=== PATIENT | male | born 1970 | race Caucasian/White ===

== ENCOUNTER 2023-11-01 08:00 | Emergency (ER) | payer OTHER, SELFPAY ==
--- NOTE | 2023-11-01 08:01 | XR_ITS ---
WS: [id number] XR chest 1V portable 88001 REASON FOR EXAM: chest pain FINDINGS: No previous comparison examination. The heart and the mediastinum are within normal limits. 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 No acute/subacute pulmonary parenchymal or pleural abnormality. No lung nodule or lung mass. No adenopathy. Bony thorax is intact with no significant focal abnormality. XR/XR chest 1V portable 80057 IMPRESSION: No acute abnormality.
--- NOTE | 2023-11-01 08:01 | ECG_ITS ---
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 Measurements Intervals [place] Rate: 82 P: 26 MN: 157 QRS: 41 QRSD: 100 T: 0 QT: 374 QTc: 438 Interpretive Statements SINUS RHYTHM No previous ECG available for comparison Electronically Signed On 11-02-2023 21:50:15 CDT by Sameer Sebastian M.D. [id number]
--- NOTE | 2023-11-01 08:03 | ED_ITS ---
HPI - Chest Pain 2 General: Chief Complaint: Chest Pain Stated Complaint: chest pain Time Seen by Provider: 11/01/23 08:01 Source: patient Mode of arrival: ambulatory Limitations: no limitations History of Present Illness: Patient is a 53-year-old male with a history of hypertension here for complaints of chest pressure. He states symptoms have been intermittent since last night. Upon arrival to the emergency department he states he is not having any discomfort. He denies any alleviating or worsening factors to his discomfort. It does not seem to be affected by exertion. He does not complain of feeling short of breath or any difficulty breathing. No recent illness or URI-like symptoms. No fevers. He has no known cardiac or pulmonary history. 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 complaint: chest pain and chest heaviness Onset (ago): day(s) (yesterday) Timing of current episode: episodic Prior episodes: No Onset: during rest Pain location: substernal Pain radiation: none Severity: mild Quality: other (pressure) Relieving factors: nothing Exacerbating factors: nothing Associated symptoms: Reports no associated symptoms; Deny abdominal pain, dyspnea, fever(s), nausea, palpitations, syncope or vomiting Treatment prior to arrival: none Risk Factors: Coronary artery disease risk factors: hypertension Thoracic aortic dissection risk factors: none Review of Systems 2 Const: Denies: fever(s), chills, body aches, fatigue or malaise ENMT: Denies: throat pain or odynophagia Card: Reports: chest pain; Denies: palpitations, irregular heart rhythm, edema, swelling of feet/ankles, lightheadedness, syncope, pre-syncope, dyspnea on exertion, orthopnea, leg pain with exertion or acrocyanosis Resp: Denies: dyspnea, productive cough, non-productive cough, wheezing, pain on inspiration, hemoptysis or chest congestion GI: Denies: abdominal pain, nausea, vomiting or diarrhea Musc: Denies: neck pain, back pain, extremity pain, extremity swelling or joint pain Skin/Breast: Denies: rash Neuro: Denies: headache(s), numbness in extremities, weakness in extremities, sensory changes or dizziness Physical Exam 2 Const: COMMON NORMALS: no acute distress, average body habitus, patient oriented x3, no limitations, healthy appearing, alert and well nourished G ENERAL APPEARANCE: cooperative ORIENTATION/CONSCIOUSNESS: Yes awake, Yes oriented to person, Yes oriented to place and Yes oriented to time HENMT: COMMON NORMALS: normocephalic and atraumatic HEAD & SCALP: normal to inspection, normocephalic and atraumatic Eye: COMMON NORMALS: no scleral icterus Neck/C-Spine: COMMON NORMALS: full ROM and no lymphadenopathy GENERAL: Yes normal visual inspection Chest: COMMONS NORMALS: normal inspection of the chest and normal palpation of entire chest wall Resp: COMMON NORMALS: normal respiratory effort and clear to auscultation bilaterally AUSCULTATION: clear to auscultation bilaterally Cardio: COMMON NORMALS: regular rate and regular rhythm RATE: regular rate RHYTHM: regular rhythm GI: COMMON NORMALS: Normal to inspection, nondistended, normoactive bowel sounds present, Soft to palpation and non-tender PALPATION: Yes Soft to palpation Back/Pelvis: COMMON NORMALS: thoracic and lumbar spine normal to inspection and no thoracic nor lumbar tenderness Extremity: GENERAL: Yes normal exam except as noted Neuro: [place] COMA SCALE: document GCS findings [place] coma scale eye opening: Spontaneous [place] coma scale verbal response: Orientated [place] coma scale motor response: Obey commands [place] coma scale total score: 15 COMMON NORMALS: patient oriented x3, moves all extremities, no focal motor deficits, no sensory deficits noted and gait normal SENSORIUM/ORIENTATION: Yes alert, Yes oriented to person, Yes oriented to place and Yes oriented to time Skin: COMMON NORMALS: no rashes or lesions noted GENERAL SKIN EXAM: no rashes or lesions noted Course 2 Vital Signs: Vital signs: Vital Signs Temperature 99.7 F H 11/01/23 08:08 Pulse Rate 74 11/01/23 09:28 Blood Pressure 162/97 11/01/23 09:28 Pulse Oximetry 97 11/01/23 09:28 Oxygen Delivery Me thod Room Air 11/01/23 09:17 MDM - Chest Pain Medical Decision Making Patient has been completely pain-free throughout his ED stay. His blood work including a baseline troponin is unremarkable. Symptoms starting yesterday so repeat troponins are unnecessary. Initial and repeat EKGs showing an inverted T wave in lead III but otherwise unremarkable. There are no previous EKGs for comparison. History is not overly suspicious. At this time I recommend he follow-up with primary care if chest pain episodes persist as he will need outpatient stress testing. He was given strict precautions on when to return to the emergency department. Medical Records I reviewed the patient's medical records. Lab Data I reviewed the patient's lab results. 11/01/23 08:07 11/01/23 08:07 Laboratory Results WBC 8.32 10^3/uL (3.29-11.43) 11/01/23 08:07 RBC 5.98 10^6/uL (3.85-5.65) H 11/01/23 08:07 Hgb 17.70 g/dL (11.27-16.99) H 11/01/23 08:07 Hct 50.6 % (37-53) 11/01/23 08:07 MCV 84.6 fl (82-101) 11/01/23 08:07 MCH 29.6 pg (27-33) 11/01/23 08:07 MCHC 35.0 g/dL (30-55) 11/01/23 08:07 RDW 13.4 % (12.1-15.1) 11/01/23 08:07 Plt Count 236 10^3/cmm (157-399) 11/01/23 08:07 MPV 11.3 fL (7.4-10.4) H 11/01/23 08:07 Neut % (Auto) 54.2 % 11/01/23 08:07 Lymph % (Auto) 38.8 % 11/01/23 08:07 Leon % (Auto) 4.1 % 11/01/23 08:07 Eos % (Auto) 1.8 % 11/01/23 08:07 Baso % (Auto) 0.5 % 11/01/23 08:07 Neut # (Auto) 4.51 10^3/uL (1.8-7.7) 11/01/23 08:07 Lymph # (Auto) 3.2 10^3/uL (0.8-4.8) 11/01/23 08:07 Leon # (Auto) 0.3 10^3/uL (0.2-0.9) 11/01/23 08:07 Eos # (Auto) 0.2 10^3/uL (0.0-0.8) 11/01/23 08:07 Baso # (Auto) 0.0 10^3/uL (0.0-0.1) 11/01/23 08:07 Nucleated RBC % (auto) 0 % 11/01/23 08:07 Nucleated RBCs # 0.0 /100WBC 11/01/23 08:07 Sodium 137 mmol/L (136-145) 11/01/23 08:07 Potassium 4.0 mmol/L (3.5-5.1) 11/01/23 08:07 Chloride 99 mmol/L (98-107) 11/01/23 08:07 Carbon Dioxide 23 mmol/L (22-29) 11/01/23 08:07 Anion Gap 19.0 (5-19) 11/01/23 08:07 BUN 14 mg/dL (6-20) 11/01/23 08:07 Creatinine 0.8 mg/dL (0.7-1.2) 11/01/23 08:07 GFR Calculation 101.1 mL/min (90-130) 11/01/23 08:07 Glucose 120 mg/dL (65-115) H 11/01/23 08:07 Calculated Osmolality 286 mOsm/kg (285-295) 11/01/23 08:07 Calcium 9.5 mg/dL (8.5-10.5) 11/01/23 08:07 Total Bilirubin 0.7 mg/dL (0.15-1.2) 11/01/23 08:07 AST 17 U/L (0-40) 11/01/23 08:07 ALT 25 U/L (0-41) 11/01/23 08:07 Alkaline Phosphatase 104 U/L (40-130) 11/01/23 08:07 Troponin T Baseline < 6 ng/L (0-15) 11/01/23 08:07 Total Protein 7.3 g/dL (6.6-8.7) 11/01/23 08:07 Albumin 4.6 g/dL (3.5-5.2) 11/01/23 08:07 Globulin 2.7 g/dL (1.3-4.6) 11/01/23 08:07 All radiology interpretation(s) finalized by discharge Discharge Plan Discharge Patient Disposition: Home Clinical Impression: Chest pain Qualifiers: Chest pain type: unspecified Qualified Code(s): R07.9 - Chest pain, unspecified Condition: Stable Prescriptions: No Action No Known Home Medications Discharge Orders: Discharge ED (Routine); Ordered 11/01/23 Ordered By: Ashleigh Ohara Patient Instructions: Chest Pain (DC) Activity Restrictions/Additional Instructions: As we discussed I like you to follow-up with your primary care provider for further evaluation of chest pain if episodes persist. You need to return to the emergency department immediately for onset of chest pain that does not go away, is worse in severity, if you feel nauseous, diaphoretic, lightheaded, dizzy, pass out, or any other symptoms you are concerned with. 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
[2023-11-01 08:08] VITALS: BP 167/93; PULSE 82; TEMP 37.6; O2SAT 97; BMI 30.8
[2023-11-01 08:30] LABS: Basophils % 0.5 %; Eosinophils # 0.2 10^3/uL (0.0-0.8); Eosinophils % 1.8 %; Hematocrit 50.6 % (37-53); Lymphocytes # 3.2 10^3/uL (0.8-4.8); Lymphocytes % 38.8 %; Mean Corpuscular Hemoglobin 29.6 pg (27-33); Mean Corpuscular Volume 84.6 fl (82-101); Mean Platelet Volume 11.3 fL (7.4-10.4); Monocytes # 0.3 10^3/uL (0.2-0.9); Monocytes % 4.1 %; Neutrophils # 4.51 10^3/uL (1.8-7.7); Neutrophils % 54.2 %; Nucleated Red Blood Cells % 0 %; Platelet Count 236 10^3/cmm (157-399); Red Blood Count 5.98 10^6/uL (3.85-5.65); Red Cell Distribution Width 13.4 % (12.1-15.1); White Blood Count 8.32 10^3/uL (3.29-11.43)
[2023-11-01 08:50] LABS: Alanine Aminotransferase 25 U/L (0-41); Albumin Level 4.6 g/dL (3.5-5.2); Alkaline Phosphatase 104 U/L (40-130); Aspartate Amino Transferase 17 U/L (0-40); Blood Urea Nitrogen 14 mg/dL (6-20); Calcium 9.5 mg/dL (8.5-10.5); Carbon Dioxide 23 mmol/L (22-29); Chloride 99 mmol/L (98-107); Creatinine Clr Calc Pharmacy 125.0758; Globulin 2.7 g/dL (1.3-4.6); Glomerular Filtration Rate 101.1 mL/min (90-130); Glucose 120 mg/dL (65-115); Osmolality Calculated 286 mOsm/kg (285-295); Sodium 137 mmol/L (136-145); Total Bilirubin 0.7 mg/dL (0.15-1.2); Total Protein 7.3 g/dL (6.6-8.7)
[2023-11-01 08:51] LABS: Troponin(5th) Baseline < 6 ng/L (0-15)
[2023-11-01 09:17] VITALS: BP 137/88; PULSE 76; O2SAT 96
[2023-11-01] MEDS: metoprolol tartrate 25 mg Tablet PO (09:17)
--- NOTE | 2023-11-01 09:22 | ECG_ITS ---
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 Measurements Intervals [place] Rate: 69 P: 34 MT: 161 QRS: 47 QRSD: 98 T: 21 QT: 370 QTc: 397 Interpretive Statements SINUS RHYTHM Compared to ECG 11/01/2023 08:06:42 No significant changes Electronically Signed On 11-02-2023 22:05:47 CDT by Sameer Sebastian M.D. [id number]
[2023-11-01 09:28] VITALS: BP 162/97; PULSE 74; O2SAT 97
== END 2023-11-01 09:29 | disposition home or self-care (01) ==
PROVIDERS: Emergency Provider Physician Assistant
DX: R07.9 Chest pain, unspecified (principal)
CPT/HCPCS: 36415; 71045; 80053; 84484; 85025; 93005; 99285